=== PATIENT | male | born 1975 | race Caucasian/White ===

== ENCOUNTER 2022-02-08 15:49 | Emergency (ER) | payer OTHER, SELFPAY ==
--- NOTE | ~2022-02-08 | XR_ITS ---
EXAMINATION: XR CHEST CLINICAL INFORMATION: Upper respiratory symptoms COMPARISON: None TECHNIQUE: 2 views of the chest were obtained. FINDINGS: Normal symmetric lung volumes. No parenchymal consolidation. No pleural effusion. No pneumothorax. Cardiomediastinal silhouette and pulmonary vascularity are within normal limits. No acute osseous abnormalities. XR/XR chest 2V IMPRESSION: Clear lungs
--- NOTE | 2022-02-08 17:56 | ED_ITS ---
HPI - General Adult General Chief complaint: Upper Respiratory Symptoms Stated complaint: fever chest pain,chills Time Seen by Provider: 02/09/22 00:42 Related Data Previous Rx's Medication Instructions Recorded oseltamivir 75 mg capsule (Tamiflu) 75 mg PO BID 5 days #10 caps 02/09/22 Allergies Allergy/AdvReac Type Severity Reaction Status Date / Time No Known Allergies Allergy Verified 02/08/22 18:01 [facility] Social History Social History Advance Directives: No Physical Exam ED Vital Signs: Vital Signs - 24 hr 02/08/22 17:57 02/08/22 19:47 Temperature 98.3 F 100.5 F H Pulse Rate 65 Respiratory Rate 16 18 Blood Pressure 104/60 Pulse Oximetry 98 Oxygen Delivery Method Room Air BMI result Body Mass Index 21.6 Course Course Course Narrative: 46M fever, fatigue, muscle pains, sore throat, but sig PMH of bone marrow transplant. VS Reviewed GEN: NAD HEENT: NC/AT, EOMI/PERRLA, Ears wnl. throat wnl PULM: CTAB CVS: RRR ABD: NT/ND - Labs, SARS, CXR Medications Administered Discontinued Medications Generic Name Dose Route Start Last Admin Trade Name Freq PRN Reason Stop Dose Admin Acetaminophen 975 mg 02/08/22 19:52 02/08/22 20:11 Acetaminophen 325 Mg Tablet PO 02/08/22 19:53 975 mg ONCE ONE Administration Oseltamivir Phosphate 75 mg 02/09/22 00:48 02/09/22 01:02 Oseltamivir Phosphate 75 Mg Capsule PO 02/09/22 00:49 75 mg ONCE ONE Administration Discharge Plan Discharge Clinical Impression: Influenza A Patient Disposition: Home, Self-Care Instructions: Influenza (ED) Prescriptions: New oseltamivir [Tamiflu] 75 mg capsule 75 mg PO BID 5 Days Qty: 10 0RF Interventions: ED Discharge Assessment Last Done: 02/09/22 01:07 Discharge Date/Time: 02/09/22 01:11
[2022-02-08 17:57] VITALS: BP 104/60; PULSE 65; RESP 16; TEMP 36.8; O2SAT 98; BMI 21.6
[2022-02-08 19:47] VITALS: RESP 18; TEMP 38.1
[2022-02-08 19:53] LABS: MANUAL DIFF FLAG NO
[2022-02-08 19:57] LABS: Eosinophils Percent Auto 0.2 % (0-4); Hemoglobin 11.8 g/dl (14.0-18.0); PLT CLUMP 1; Red Cell Distribution Width 12.8 % (11.0-16.0); SCAN SMEAR FLAG 1
[2022-02-08 19:59] LABS: Basophils Percent Auto 0.5 % (0-2); Hematocrit 35.4 % (42.0-52.0); Imm Gran Abs Auto 0.01 X10*3/uL (0.00-0.03); Imm Gran Pct Auto 0.2 % (0.0-0.4); Lymphocytes Absolute Auto 1.1 X10*3/uL (1.2-4.9); Lymphocytes Percent Auto 25.7 % (20-40); Mean Corpuscular HGB Conc 33.3 g/dl (31.0-36.0); Mean Corpuscular Hemoglobin 32.6 pg (27.0-33.0); Mean Corpuscular Volume 97.8 fL (80.0-98.0); Mean Platelet Volume 9.9 fL (9.4-12.4); Monocytes Absolute Auto 0.7 X10*3/uL (0.1-1.2); Monocytes Percent Auto 14.9 % (2-11); Neutrophils Absolute Auto 2.5 x10*3/uL (2.0-8.3); Neutrophils Percent Auto 58.5 % (45-73); Red Blood Count 3.62 X10*6/uL (4.60-5.80)
[2022-02-08 20:01] LABS: Platelet Count 108 X10*3/uL (160-400); White Blood Count 4.4 X10*3/uL (4.8-10.8)
[2022-02-08] MEDS: Acetaminophen 325 MG TABLET 975 MG PO (20:11)
[2022-02-08 20:20] LABS: Lactic Acid 1.6 mmol/L (0.5-2.0)
[2022-02-08 20:29] LABS: Alanine Aminotransferase 15 U/L (0-40); Albumin Level 4.9 g/dL (3.5-5.0); Alkaline Phosphatase 56 U/L (39-117); Anion Gap 14 (12-20); Aspartate Amino Transferase 19 U/L (5-37); Bilirubin Total 0.6 mg/dL (0.0-1.0); Blood Urea Nitrogen 7 mg/dL (9-16); Calcium 9.3 mg/dL (8.4-10.2); Carbon Dioxide 28 mmol/L (22-29); Chloride 103 mmol/L (96-108); Estimated Glomerular Filt Rate > 60; Glucose Fasting 92 mg/dL (60-99); Potassium 3.7 mmol/L (3.3-5.1); Sodium 141 mmol/L (135-145); Total Protein 7.2 g/dL (6.5-8.0)
[2022-02-08 20:55] LABS: Influenza A PCR POSITIVE (Negative); Influenza B PCR NEGATIVE (Negative); Resp Syncy Virus RNA Qual PCR NEGATIVE (Negative); SARS COV2 PCR INHOUSE NEGATIVE (Negative)
[2022-02-09 00:43] VITALS: BP 121/78; PULSE 76; RESP 19; TEMP 37; O2SAT 96
--- NOTE | 2022-02-09 00:56 | ED.URI ---
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 Denies any vomiting any diarrhea MD elicited complaint: fever Pertinent past history: immunosuppression and other Onset (ago): day(s) (1) Consistency: constant Able to tolerate fluids by mouth: Yes Exacerbating factors: nothing Relieving factors: nothing Associated symptoms: fever Related Data Previous Rx's Medication Instructions Recorded oseltamivir 75 mg capsule (Tamiflu) 75 mg PO BID 5 days #10 caps 02/09/22 Allergies Allergy/AdvReac Type Severity Reaction Status Date / Time No Known Allergies Allergy Verified 02/08/22 18:01 Review of Systems Constitutional: Constitutional: Reports no additional constitutional complaints ENT: Reports system reviewed and no additional complaints, except as documented Cardiovascular: Cardiovascular: Reports no additional cardiovascular complaints Respiratory: Respiratory: Reports cough Gastrointestinal: Gastrointestinal: Reports no additional gastrointestinal complaints Musculoskeletal: Musculoskeletal: Reports no additional musculoskeletal complaints PMFSH Past Medical History PMF Narrative: Bone marrow transplant his pain 2 years ago Social History Social History Advance Directives: No Physical Exam Vital Signs: Vital Signs: Last Vital Signs Temp 98.6 F 02/09/22 00:43 Pulse 76 02/09/22 00:43 Resp 19 02/09/22 00:43 BP 121/78 02/09/22 00:43 Pulse Ox 96 02/09/22 00:43 O2 Del Method 02/09/22 00:43 BMI result Body Mass Index 21.6 Const: General: cooperative Nutritional Appearance: average body habitus Orientation/consciousness: patient oriented x3 HEENT: Head: Yes normal to inspection General nose exam: Normal external nose present Face and sinus: Yes normal facial exam Throat: Yes posterior oropharynx normal Neck: Neck: Yes normal visual inspection, Yes full ROM and Yes no lymphadenopathy Chest: Chest palpation & inspection: normal inspection of the chest Resp: Effort & Inspection: normal respiratory effort Auscultation: clear to auscultation bilaterally Cardio: Jugular venous distension: no JVD Rate: regular rate Rhythm: regular rhythm GI: Inspection: Yes normal to inspection Palpation (GI): Soft to palpation, not firm and nontender Auscultation: normal bowel sounds : General: Yes no CVA tenderness Back/Spine/Pelvis: Back: no CVA tenderness Skin: General skin exam: no rashes or lesions noted and elasticity normal Lesions: no lesions Rashes: no rashes Hair: normal Neuro: General: patient oriented x3 Cranial nerves: Yes CN's II-XII intact bilaterally Medications Administered Discontinued Medications Generic Name Dose Route Start Last Admin Trade Name Chrisq PRN Reason Stop Dose Admin Acetaminophen 975 mg 02/08/22 19:52 02/08/22 20:11 Acetaminophen 325 Mg Tablet PO 02/08/22 19:53 975 mg ONCE ONE Administration Oseltamivir Phosphate 75 mg 02/09/22 00:48 02/09/22 01:02 Oseltamivir Phosphate 75 Mg Capsule PO 02/09/22 00:49 75 mg ONCE ONE Administration Medical Decision Making Medical Decision Making MDM Narrative: Patient is positive for influenza a, chest x-ray is negative, he does have a history of bone marrow transplant about the looks well is not toxic-appearing I think it is reasonable to discharge him home a with Tamiflu Chronic conditions affecting care (e.g., diabetes, HTN): Chronic conditions affecting care (e.g., diabetes, HTN) (lymphoma) Discharge Plan Discharge Clinical Impression: Influenza A Patient Disposition: Home, Self-Care Instructions: Influenza (ED) Prescriptions: New oseltamivir [Tamiflu] 75 mg capsule 75 mg PO BID 5 Days Qty: 10 0RF Interventions: ED Discharge Assessment Last Done: 02/09/22 01:07 Discharge Date/Time: 02/09/22 01:11
[2022-02-09] MEDS: Oseltamivir Phosphate 75 MG CAPSULE PO (01:02)
== END 2022-02-09 01:11 | disposition home or self-care (01) ==
PROVIDERS: Emergency Provider Emergency Medicine
DX: J10.1 Influenza due to other identified influenza virus with other respiratory manifestations (principal); R05.9 Cough, unspecified; R50.9 Fever, unspecified; Z20.822 Contact with and (suspected) exposure to COVID-19
CPT/HCPCS: 0241U; 36415; 71046; 80053; 83605; 85025; 87040; 99283; 99284